=== PATIENT | female | born 1960 | race Caucasian/White ===

== ENCOUNTER 2018-05-07 10:08 | Day surgery (SDC) | payer OTHER ==
[2018-05-07] MEDS: NS 1,000 ML IV (10:45)
[2018-05-07] MEDS ORDERED: PROPOFOL 200 MG/20 ML VIAL As Ordered (10:52)
[2018-05-07] MEDS ORDERED: LIDOCAINE 2% INJ 100 MG/5 ML SDV (FOR ANES.) As Ordered (10:52)
== END 2018-05-07 13:02 | disposition home or self-care (01) ==
LOC: M OPP 10:08
DX: Z12.11 Encounter for screening for malignant neoplasm of colon (principal); Z86.010 Personal history of colon polyps; K64.8 Other hemorrhoids; M19.90 Unspecified osteoarthritis, unspecified site; R21 Rash and other nonspecific skin eruption; F32.9 Major depressive disorder, single episode, unspecified; Z97.8 Presence of other specified devices; R32 Unspecified urinary incontinence; Z96.651 Presence of right artificial knee joint; Z88.1 Allergy status to other antibiotic agents; Z79.899 Other long term (current) drug therapy
CPT/HCPCS: 45378

== ENCOUNTER 2019-03-18 13:32 | Emergency (ER) | payer OTHER ==
[~2019-03-18] VITALS: Ht 170.2 cm; Wt 122.2 kg
[~2019-03-18 13:32] MED LIST: /LOR25TA PO; COLACE PO; EYETAB PO; GARC500T PO; IBUP200T2 PO; LEXA1TAB PO; MAPA500T17 PO; MELO15TA28 PO; MULT1TAB10 PO; MULTTAB4 PO; OSTETAB3 PO; OSTETAB4 PO; VICODIN PO; VITA500046 PO
[2019-03-18] MEDS ORDERED: IBUPROFEN 600 MG TAB PO ONE (15:45)
--- NOTE | 2019-03-18 17:22 | REP ---
RIGHT ELBOW, FOUR VIEWS: There is no evidence of an acute fracture, dislocation or intrinsic bone disease. IMPRESSION: No fracture or dislocation. Electronically Signed by Rich Spivey MD 03/20/2019 10:30 A
[2019-03-18 17:34] VITALS: BP 161/91
--- NOTE | 2019-03-18 17:53 | REP ---
LUMBOSACRAL SPINE: Five views of the lumbosacral spine are performed. There is no compression fracture. There is relatively normal lumbar lordosis. There is moderate diffuse spurring and disc space narrowing with subchondral sclerosis. Vacuum phenomenon is noted at L3-4 and L4-5. There is sclerosis at the posterior facet joints at L5-S1. The posterior elements are intact. There is slight curvature toward the left. Stimulator device is seen in the right lower quadrant. IMPRESSION: Degenerative changes without fracture or dislocation. Electronically Signed by Rich Spivey MD 03/20/2019 10:33 A
== END 2019-03-18 17:39 | disposition home or self-care (01) ==
LOC: M ED 13:32
DX: S50.01XA Contusion of right elbow, initial encounter (principal); S39.012A Strain of muscle, fascia and tendon of lower back, initial encounter; W01.0XXA Fall on same level from slipping, tripping and stumbling without subsequent striking against object, initial encounter; Y92.9 Unspecified place or not applicable; Y93.E5 Activity, floor mopping and cleaning; Y99.9 Unspecified external cause status; M51.36 Other intervertebral disc degeneration, lumbar region; Z96.9 Presence of functional implant, unspecified; Z87.39 Personal history of other diseases of the musculoskeletal system and connective tissue; F32.9 Major depressive disorder, single episode, unspecified; M19.90 Unspecified osteoarthritis, unspecified site; Z87.42 Personal history of other diseases of the female genital tract; Z79.899 Other long term (current) drug therapy; Z88.8 Allergy status to other drugs, medicaments and biological substances

== ENCOUNTER 2019-10-21 12:47 | Emergency (ER) | payer OTHER, BC ==
[~2019-10-21] VITALS: Ht 170.2 cm; Wt 117.0 kg
[2019-10-21] MEDS ORDERED: OXYC15TA76 (12:57)
[2019-10-21] MEDS ORDERED: LIDOCAINE 2% MDV 20 ML VIAL SC ONE (15:15)
[2019-10-21] MEDS ORDERED: ADACEL/BOOSTRIX VACCINE (DIPHTH/PERTUSS/ACELL/TETANUS)0.5ML SYR (90715) IM ONE (15:15)
--- NOTE | 2019-10-21 15:27 | REP ---
Clinical: Trauma. Foreign body. Technique: AP and lateral views of the right forearm. Findings: No acute fracture dislocation. No subcutaneous emphysema. No foreign body. Impression: No foreign body identified. Electronically Signed by Shaquille Aragon MD 10/21/2019 03:17 P
[2019-10-21] MEDS ORDERED: DOXY100C37 PO (15:53)
[2019-10-21 16:04] VITALS: BP 153/104
== END 2019-10-21 16:05 | disposition home or self-care (01) ==
LOC: M ED 12:47
DX: S51.811A Laceration without foreign body of right forearm, initial encounter (principal); W26.8XXA Contact with other sharp object(s), not elsewhere classified, initial encounter; Y92.89 Other specified places as the place of occurrence of the external cause; Y99.0 Civilian activity done for income or pay; F33.9 Major depressive disorder, recurrent, unspecified; Z79.899 Other long term (current) drug therapy; Z88.2 Allergy status to sulfonamides; Z88.8 Allergy status to other drugs, medicaments and biological substances

== ENCOUNTER → 2019-12-31 | Outpatient (REF) | payer BC ==
[~2019-12-31] MED LIST changes: +DOXY100C37 PO; +OXYC-1
== END ==
LOC: M LAB REF 12:21
PROVIDERS: ATTEND Nurse Practitioner Family
DX: N39.0 Urinary tract infection, site not specified (principal)

== ENCOUNTER → 2020-04-13 | Emergency (ER) | payer OTHER, BC | END | disposition home or self-care (01) | LOC: M ED 12:00 | DX: S02.2XXA Fracture of nasal bones, initial encounter for closed fracture (principal); S00.33XA Contusion of nose, initial encounter; W01.198A Fall on same level from slipping, tripping and stumbling with subsequent striking against other object, initial encounter; Y92.89 Other specified places as the place of occurrence of the external cause; Y93.89 Activity, other specified; Y99.0 Civilian activity done for income or pay; F32.9 Major depressive disorder, single episode, unspecified; G89.29 Other chronic pain; Z88.2 Allergy status to sulfonamides; Z79.899 Other long term (current) drug therapy ==

== ENCOUNTER 2020-04-15 10:05 | Emergency (ER) | payer OTHER, BC ==
[2020-04-15] MEDS ORDERED: ISOVUE-370 76% 100ML VIAL As Ordered ONE (13:23)
[2020-06-01 17:17] LABS: BASO % 0.6 % (0.0-1.0); EOS # 0.2 10^3/uL (0.0-0.5); EOS % 3.6 % (0.0-3.0); HEMATOCRIT 45.1 % (36.0-47.0); HEMOGLOBIN 14.6 g/dl (12.0-15.5); LYMPH # 1.6 10^3/uL (1.5-5.0); LYMPH % 31.1 % (24.0-44.0); MEAN CORPUSCULAR HEMOGLOBIN 29.9 pg (27.0-33.0); MEAN CORPUSCULAR HGB CONC 32.4 g/dl (32.0-36.5); MEAN CORPUSCULAR VOLUME 92.4 fl (80.0-96.0); MONO # 0.6 10^3/uL (0.0-0.8); MONO % 11.2 % (0.0-5.0); NEUTROPHILS # 2.6 10^3/uL (1.5-8.5); NEUTROPHILS % 53.1 % (36.0-66.0); PLATELET COUNT, AUTOMATED 179 10^3/uL (150-450); RED BLOOD COUNT 4.88 10^6/uL (4.00-5.40)
[2020-07-04 18:16] LABS: ALBUMIN 3.9 GM/DL (3.2-5.2); ALT/SGPT 40 U/L (12-78); BILIRUBIN,DIRECT 0.1 MG/DL (0.0-0.2); BILIRUBIN,TOTAL 0.6 MG/DL (0.2-1.0); BLOOD UREA NITROGEN 14 MG/DL (7-18); CALCIUM LEVEL 8.8 MG/DL (8.5-10.1); CARBON DIOXIDE LEVEL 30 MEQ/L (21-32); CHLORIDE LEVEL 109 MEQ/L (98-107); CREATININE FOR GFR 0.94 MG/DL (0.55-1.30); GLOMERULAR FILTRATION RATE > 60.0 (>51); GLUCOSE, FASTING 97 MG/DL (70-100); POTASSIUM SERUM 4.1 MEQ/L (3.5-5.1); SODIUM LEVEL 141 MEQ/L (136-145)
== END 2020-04-15 14:29 | disposition home or self-care (01) ==
LOC: M ED 10:05
DX: R10.12 Left upper quadrant pain (principal); R07.81 Pleurodynia; W01.0XXA Fall on same level from slipping, tripping and stumbling without subsequent striking against object, initial encounter; Y99.0 Civilian activity done for income or pay; M48.061 Spinal stenosis, lumbar region without neurogenic claudication; K76.0 Fatty (change of) liver, not elsewhere classified; Z90.710 Acquired absence of both cervix and uterus; M54.5 Low back pain; F33.9 Major depressive disorder, recurrent, unspecified; Z88.2 Allergy status to sulfonamides; Z88.1 Allergy status to other antibiotic agents
CPT/HCPCS: 36415; 71101; 74177; 80048; 80076; 85025; 99283; Q9967

== ENCOUNTER → 2021-07-27 | Outpatient (CLI) | payer OTHER, BC ==
[~2021-07-27] MED LIST changes: +DOXY-443 PO; -DOXY100C37 PO
--- NOTE | 2021-07-27 09:19 | REP ---
INDICATION: LOW BACK PAIN COMPARISON: None. TECHNIQUE: AP, lateral, coned-down views of the lumbar spine. FINDINGS: Chronic levoconvex scoliosis and advanced multilevel degenerative changes include endplate sclerosis, osteophytosis, disc space narrowing and facet hypertrophy. No acute fracture/compression injury. IMPRESSION: 1. No acute fracture / compression injury or subluxation. 2. Chronic levoconvex scoliosis and advanced multilevel degenerative spondylosis. <Electronically signed by Shaquille Aragon > 07/27/21 [id number]
== END ==
LOC: M SOG 08:09
PROVIDERS: ATTEND Orthopaedic Surgery
DX: M54.50 Low back pain, unspecified (principal); M47.896 Other spondylosis, lumbar region

== ENCOUNTER → 2021-08-17 | Outpatient (CLI) | payer BC ==
[~2021-08-17] MED LIST changes: +ASPI-551 PO; +COLA100C5 PO; +NAPR-849 PO; +OXYC5CAP56 PO
== END ==
LOC: M SOG 08:18
PROVIDERS: ATTEND Orthopaedic Surgery Adult Reconstructive Orthopaedic Surgery
DX: M25.562 Pain in left knee (principal)

== ENCOUNTER 2021-08-27 08:54 | Outpatient (RCR) | payer BC ==
[~2021-08-27 08:54] MED LIST changes: -ASPI-551 PO; -COLA100C5 PO; -NAPR-849 PO; -OXYC5CAP56 PO
== END 2021-09-07 ==
LOC: M PT 08:54
PROVIDERS: ATTEND Orthopaedic Surgery Adult Reconstructive Orthopaedic Surgery
DX: M17.12 Unilateral primary osteoarthritis, left knee (principal)

== ENCOUNTER → 2021-09-25 | Outpatient (CLI) | payer BC | LOC: M RAD 12:46 | PROVIDERS: ATTEND Orthopaedic Surgery Adult Reconstructive Orthopaedic Surgery | DX: M17.12 Unilateral primary osteoarthritis, left knee (principal) ==

== ENCOUNTER → 2021-10-18 | Outpatient (CLI) | payer BC | LOC: M LABSMTC 09:10 | PROVIDERS: ATTEND Anesthesiology | DX: Z01.812 Encounter for preprocedural laboratory examination (principal); Z20.822 Contact with and (suspected) exposure to COVID-19 ==

== ENCOUNTER 2021-10-23 06:06 | Inpatient (IN) | payer BC ==
[~2021-10-23] VITALS: Ht 170.2 cm; Wt 122.5 kg
[2021-10-23] VITALS (7 sets, daily range): BP systolic 118–147; BP diastolic 79–118
[~2021-10-23 06:06] MED LIST changes: +ACETAMINOPHEN 500 MG TAB PO ONE; +LR 1,000 ML IV ONE; +NAPROXEN 250 MG TAB PO ONE; +NS 1,000 ML IV ONE; +PREGABALIN 25 MG CAP (LYRICA) PO ONE; +ROPIVA 125MG/EPINEPH 0.25MG/CLONID 40MCG/KETOR 15MG IN NS 50ML SYRINGE PA ONE; +TRANEXAMIC ACID 100 MG/ML 10ML VIAL IV ONE; +VANCOMYCIN HCL 1,000 MG, VIAL MATE ADAPTER 1 EACH in NS 250 ML IV ONE; +dexameTHASONE 4 MG/ML 1ML VIAL (J1100 PER 1MG) IV ONE
[2021-10-23] MEDS ORDERED: propofoL 500 MG/50 ML VIAL As Ordered ONE ×3 (06:56→09:15)
[2021-10-23] MEDS ORDERED: propofoL 200 MG/20 ML VIAL As Ordered ONE (06:57)
[2021-10-23] MEDS ORDERED: MIDAZOLAM INJ 2MG/2ML VIAL (J2250 PER 1MG) As Ordered ONE (06:57)
[2021-10-23] MEDS ORDERED: LIDOCAINE 2% 100MG/5ML SDV (FOR ANES.) As Ordered ONE (06:57)
[2021-10-23] MEDS ORDERED: TRANEXAMIC ACID 100 MG/ML 10ML VIAL As Ordered ONE (07:14)
[2021-10-23] MEDS ORDERED: PHENYLephrine 500MCG 5ML (100MCG/ML) SYRINGE As Ordered ONE ×2 (09:12→09:13)
[2021-10-23] MEDS ORDERED: ePHEDrine SULFATE 25 MG/5 ML(5MG/ML) SYRINGE As Ordered ONE (09:12)
[2021-10-23] MEDS ORDERED: ACETAMINOPHEN 1000MG 100ML IV BTL (OFIRMEV) (J0131 PER 10MG) As Ordered ONE (10:06)
[2021-10-23] MEDS ORDERED: PERCOCET 5MG/325MG TAB PO PRN (10:40)
[2021-10-23] MEDS ORDERED: LR 1,000 ML IV SCH (10:40)
[2021-10-23] MEDS ORDERED: fentaNYL 100 MCG/2 ML INJECTION IV PRN (10:40)
[2021-10-23] MEDS: LR 1,000 ML IV SCH ×2 (10:40→21:44)
[2021-10-23] MEDS ORDERED: ONDANSETRON 4MG/2ML VIAL IV PRN ×2 (10:40→10:45)
[2021-10-23] MEDS ORDERED: SENNA 8.6 MG TAB (SENOKOT) PO PRN (10:45)
[2021-10-23] MEDS ORDERED: oxyCODONE 5MG TAB PO PRN ×3 (10:45→15:55)
[2021-10-23 12:07] LABS: HEMATOCRIT 42.9 % (36.0-47.0); HEMOGLOBIN 14.1 g/dl (12.0-15.5); MEAN CORPUSCULAR HEMOGLOBIN 29.9 pg (27.0-33.0); MEAN CORPUSCULAR HGB CONC 32.9 g/dl (32.0-36.5); MEAN CORPUSCULAR VOLUME 90.9 fl (80.0-96.0); PLATELET COUNT, AUTOMATED 180 10^3/uL (150-450); RED BLOOD COUNT 4.72 10^6/uL (4.00-5.40); WHITE BLOOD COUNT 7.5 10^3/uL (4.0-10.0)
[2021-10-23 12:36] LABS: CALCIUM LEVEL 8.7 MG/DL (8.8-10.2); CREATININE FOR GFR 1.09 MG/DL (0.55-1.30); GLOMERULAR FILTRATION RATE 54.3 (>45); PHOSPHORUS LEVEL 2.7 MG/DL (2.5-4.9); POTASSIUM SERUM 3.2 MEQ/L (3.5-5.1)
[2021-10-23] MEDS: ACETAMINOPHEN TAB 650MG DOSE (2X325MG) PO SCH ×2 (13:07→21:36)
[2021-10-23] MEDS: traMADol 50 MG TAB PO PRN (14:52)
[2021-10-23] MEDS ORDERED: POTASSIUM CHLORIDE 10MEQ SR TABLET PO ONE (15:45)
[2021-10-23] MEDS ORDERED: MORPHINE 4 MG/ML 1ML VIAL/SYRINGE (J2270) IV PRN ×2 (15:55→18:35)
[2021-10-23] MEDS: oxyCODONE 5MG TAB PO PRN ×2 (18:26→23:10)
[2021-10-23] MEDS: ASPIRIN 81MG ENTERIC TABLET PO SCH (21:35)
[2021-10-23] MEDS: NAPROXEN 250 MG TAB PO SCH (21:35)
[2021-10-23] MEDS: VANCOMYCIN HCL 1,000 MG, VIAL MATE ADAPTER 1 EACH in NS 250 ML IV SCH (21:36)
[2021-10-23] MEDS: DOCUSATE SODIUM 100MG CAPSULE PO SCH (21:36)
[2021-10-24 02:00] VITALS: BP 116/65
[2021-10-24] MEDS: traMADol 50 MG TAB PO PRN ×2 (02:25→06:42)
[2021-10-24] MEDS: ACETAMINOPHEN TAB 650MG DOSE (2X325MG) PO SCH ×2 (02:25→08:55)
[2021-10-24] MEDS: oxyCODONE 5MG TAB PO PRN ×2 (04:57→10:54)
[2021-10-24 06:00] VITALS: BP 113/66
[2021-10-24 06:36] LABS: HEMATOCRIT 36.1 % (36.0-47.0); MEAN CORPUSCULAR HEMOGLOBIN 30.4 pg (27.0-33.0); MEAN CORPUSCULAR HGB CONC 33.5 g/dl (32.0-36.5); MEAN CORPUSCULAR VOLUME 90.7 fl (80.0-96.0); PLATELET COUNT, AUTOMATED 189 10^3/uL (150-450); RED BLOOD COUNT 3.98 10^6/uL (4.00-5.40); WHITE BLOOD COUNT 12.6 10^3/uL (4.0-10.0)
[2021-10-24 06:42] LABS: HEMOGLOBIN 12.1 g/dl (12.0-15.5)
[2021-10-24 07:06] LABS: BLOOD UREA NITROGEN 12 MG/DL (7-18); CALCIUM LEVEL 8.2 MG/DL (8.8-10.2); CARBON DIOXIDE LEVEL 23 MEQ/L (21-32); CHLORIDE LEVEL 111 MEQ/L (98-107); CREATININE FOR GFR 0.86 MG/DL (0.55-1.30); GLOMERULAR FILTRATION RATE > 60.0 (>45); GLUCOSE, FASTING 116 MG/DL (70-100); PHOSPHORUS LEVEL 2.9 MG/DL (2.5-4.9); POTASSIUM SERUM 4.6 MEQ/L (3.5-5.1); SODIUM LEVEL 140 MEQ/L (136-145)
[2021-10-24] MEDS: VANCOMYCIN HCL 1,000 MG, VIAL MATE ADAPTER 1 EACH in NS 250 ML IV SCH (08:54)
[2021-10-24] MEDS: DOCUSATE SODIUM 100MG CAPSULE PO SCH (08:54)
[2021-10-24] MEDS: ASPIRIN 81MG ENTERIC TABLET PO SCH (08:54)
[2021-10-24] MEDS: NAPROXEN 250 MG TAB PO SCH (08:55)
[2021-10-24] MEDS ORDERED: oxyCODONE 10 MG CR TAB PO SCH (09:00)
[2021-10-24] MEDS ORDERED: FERROUS SULFATE 325MG TAB PO SCH (09:00)
[2021-10-24] MEDS ORDERED: ASCORBIC ACID 500 MG TAB PO SCH (09:00)
[2021-10-24] MEDS ORDERED: COLA100C5 PO (09:04)
[2021-10-24] MEDS ORDERED: ASPI-551 PO (09:04)
[2021-10-24] MEDS ORDERED: NAPR-849 PO (09:04)
[2021-10-24] MEDS ORDERED: OXYC5CAP56 PO (11:47)
== END 2021-10-24 11:35 | disposition home health service (06) | DRG 302 ==
LOC: M SDC 06:06 → M MS5PR 06:07
PROVIDERS: ADMIT Internal Medicine; ATTEND Internal Medicine
PROC: 8E0Y0CZ Robotic Assisted Procedure of Lower Extremity, Open Approach (ICD-10-PCS; 2021-10-23)
PROC: 0SRD0JZ Replacement of Left Knee Joint with Synthetic Substitute, Open Approach (ICD-10-PCS; principal; 2021-10-23 07:30)
DX: M17.12 Unilateral primary osteoarthritis, left knee (principal); F41.9 Anxiety disorder, unspecified; M54.50 Low back pain, unspecified; R32 Unspecified urinary incontinence; Z90.49 Acquired absence of other specified parts of digestive tract; Z79.82 Long term (current) use of aspirin; Z79.899 Other long term (current) drug therapy; Z88.2 Allergy status to sulfonamides; Z88.8 Allergy status to other drugs, medicaments and biological substances; Z79.1 Long term (current) use of non-steroidal anti-inflammatories (NSAID)

== ENCOUNTER → 2021-11-06 | Outpatient (CLI) | payer BC ==
[~2021-11-06] MED LIST changes: -ACETAMINOPHEN 500 MG TAB PO ONE; +ASPI-551 PO; +COLA100C5 PO; -LR 1,000 ML IV ONE; +NAPR-849 PO; -NAPROXEN 250 MG TAB PO ONE; -NS 1,000 ML IV ONE; +OXYC5CAP56 PO; -PREGABALIN 25 MG CAP (LYRICA) PO ONE; -ROPIVA 125MG/EPINEPH 0.25MG/CLONID 40MCG/KETOR 15MG IN NS 50ML SYRINGE PA ONE; -TRANEXAMIC ACID 100 MG/ML 10ML VIAL IV ONE; -VANCOMYCIN HCL 1,000 MG, VIAL MATE ADAPTER 1 EACH in NS 250 ML IV ONE; -dexameTHASONE 4 MG/ML 1ML VIAL (J1100 PER 1MG) IV ONE
== END ==
LOC: M SOG 08:04
PROVIDERS: ATTEND Orthopaedic Surgery Adult Reconstructive Orthopaedic Surgery
DX: Z96.652 Presence of left artificial knee joint (principal)

== ENCOUNTER 2023-07-04 07:01 | Day surgery (SDC) | payer BC ==
[~2023-07-04] VITALS: Ht 170.2 cm; Wt 122.5 kg
[~2023-07-04 07:01] MED LIST changes: +ATOR1TAB19 PO; +CALC500T38 PO; +NS 1,000 ML IV ONE; +PROBCAP14 PO; +RA M500C PO; +VITA100093 PO; +VITMTA PO
[2023-07-04] MEDS ORDERED: LIDOCAINE 2% 100MG/5ML SDV (FOR ANES.) As Ordered ONE (08:45)
[2023-07-04] MEDS ORDERED: propofoL 500 MG/50 ML VIAL As Ordered ONE (08:45)
[2023-07-04] MEDS ORDERED: MIDAZOLAM INJ 2MG/2ML VIAL As Ordered ONE (08:45)
[2023-07-04 09:01] VITALS: TEMP 98
[2023-07-04 09:25] VITALS: BP 177/90; O2SAT 99
== END 2023-07-04 09:30 | disposition home or self-care (01) ==
LOC: M OPP 07:01
PROVIDERS: ATTEND Internal Medicine Gastroenterology
DX: Z12.11 Encounter for screening for malignant neoplasm of colon (principal); D12.4 Benign neoplasm of descending colon; K64.8 Other hemorrhoids; Z86.010 Personal history of colon polyps
CPT/HCPCS: 45385; 88305; J2250